=== PATIENT | male | born 1965 | race Caucasian/White ===

== ENCOUNTER 2019-11-29 17:12 | Inpatient (IN) | payer OTHER, SELFPAY ==
[2019-11-29] VITALS (17 sets, daily range): BP systolic 179–245; BP diastolic 112–148; PULSE 52–87; RESP 10–25; TEMP 36.1–36.7; O2SAT 94–100; BMI 35.9
--- NOTE | ~2019-11-29 | XR_ITS ---
EXAMINATION: XR chest 1V portable EXAM DATE: 11/29/2019 18:40 INDICATION: History of stroke. Hypertension, transient alteration of awareness. TECHNIQUE: Portable AP frontal chest x-ray was obtained. Comparison is made to prior examination from 09/03/2017. FINDINGS: Mild cardiomegaly. There is pulmonary vascular congestion. No confluent consolidation, pneu mothorax or pleural effusion suspected. There are no osseous abnormalities identified. IMPRESSION: Cardiomegaly, pulmonary vascular congestion. Reviewed, dictated and finalized at location A.
--- NOTE | ~2019-11-29 | CT_ITS ---
EXAMINATION: CT brain wo con EXAM DATE: 11/29/2019 17:38 INDICATION: Confusion, right-sided facial droop. TECHNIQUE: Spiral CT of the head was performed without contrast. Axial, coronal and sagittal images were reviewed. The dose-length product (DLP) for this examination was 605.33 mGy-cm. The exposure w as tailored according to patient size, and iterative reconstruction (ASIR) was used as additional dos e reduction technique. Comparison is made to prior examination from 09/12/2018. FINDINGS: There is no acute intraparenchymal hemorrhage. No evidence of intraparenchymal brain mass lesion. No evidence of acute infarction. Please note that initial head CT has limited sensitivity f or small or acute infarctions. Multiple old bilateral basal ganglia, bilateral caudate head, right t halamic lacunar infarctions. There is moderate periventricular and subcortical hypodensity, nonspeci fic but probably related to small vessel ischemic disease. There is mild prominence of the sulci an d ventricles related to cerebral atrophy. There is intracranial carotid arteriosclerosis. There ar e no extra-axial collections. There is no mass effect or midline shift. The orbits are unremarkable . Soft tissue is unremarkable. The visualized sinuses and mastoid air cells are well aerated. IMPRESSION: 1. No acute intracranial findings. 2. Chronic age related findings. 3. Multiple old bilateral lacunar infarctions. As per stroke protocol, I called these results, discussed with Liberty Ramos MD at 11/29/2019 17: 44 CDT. Reviewed, dictated and finalized at location A. IMPRESSION: 1. No acute intracranial findings. 2. Chronic age related findings. 3. Multiple old bilateral lacunar infarctions. As per stroke protocol, I called these results, discussed with Liberty Ramos MD at 11/29/2019 17:44 CDT.
--- NOTE | ~2019-11-29 | US_ITS ---
EXAMINATION: US carotid duplex BI EXAM DATE: 12/02/2019 17:11 INDICATION: History of stroke. TECHNIQUE: Grayscale, color and pulsed Doppler images of the cervical carotid arteries were obtained . The degree of vessel stenosis is placed in one of the following categories: normal, <50% stenosis, 50-69% stenosis, >=70% stenosis but less than near-occlusion, near-occlusion, or occlusion. Note that percent stenosis relative to normal distal artery lumen diameter is indirectly measured from velocit y measurements as described by Adithya, et al. Radiology 2003; 229:340-346. Comparison is made to prior examination from 09/13/2018. FINDINGS: RIGHT SIDE: Right common carotid artery peak systolic velocity (PSV in cm/s): 78 Right bulb/internal carotid artery peak systolic velocity (PSV in cm/s): 45 Right internal carotid artery end diastolic velocity (EDV in cm/s): 18 Right ICA/CCA peak systolic ratio: 0.7 Right external carotid artery peak systolic velocity (PSV in cm/s): 61 Right vertebral artery antegrade flow: yes There is no focal plaque identified. LEFT SIDE: Left common carotid artery peak systolic velocity (PSV in cm/s): 76 Left bulb/internal carotid artery peak systolic velocity (PSV in cm/s): 34 Left internal carotid artery end diastolic velocity (EDV in cm/s): 12 Left ICA/CCA peak systolic ratio: 0.4 Left external carotid artery peak systolic velocity (PSV in cm/s): Not visualized Left vertebral artery antegrade flow: Not visualized There is no focal plaque identified. IMPRESSION: 1. Normal right internal carotid artery. 2. Normal left internal carotid artery. Reviewed, dictated and finalized at location A.
--- NOTE | ~2019-11-29 | CT_ITS ---
EXAMINATION: CTA brain carotid EXAM DATE: 12/02/2019 23:59 INDICATION: Altered mental status. History of stroke. TECHNIQUE: Noncontrast head CT. Spiral CTA of the carotid arteries was performed with intravenous i njection 100 cc of Omnipaque 350. Axial, coronal, sagittal reformatted images reviewed. Additional r eformatted images created on dedicated 3-D workstation. NASCET comparable standard used to assess th e degree of arterial stenosis. Spiral CT angiogram cerebral arteries performed with the same intrave nous injection of contrast. Source images of the brain CTA transferred to dedicated workstation for 3 -D rotational image creation. Coronal, sagittal maximum intensity pixel images also reviewed. The d ose-length product (DLP) for this examination was 1862.05 mGy-cm. The exposure was tailored accordi ng to patient size, and iterative reconstruction (ASIR) was used as additional dose reduction techniq ue. Comparison is made to prior examination from 11/29/2019. FINDINGS: Minimal bilateral extracranial carotid arterial sclerosis with 0% stenosis bilaterally. The left vertebral artery is dominant. No carotid siphon stenosis. There is no carotid or vertebral bas ilar arterial dissection or fibromuscular dysplasia. There are no cerebral artery aneurysms. There is symmetric cerebral artery arborization. The sagittal, transverse and sigmoid sinuses enhance normall y, no venous sinus thrombosis. Internal cerebral veins also enhance normally. There are multiple old bilateral basal ganglia lacunar infarctions. There is no acute intraparenchyma l hemorrhage. No evidence of intraparenchymal brain mass lesion. No evidence of acute infarction. T here is moderate periventricular and subcortical hypodensity, nonspecific but probably related to sma ll vessel ischemic disease. There is mild prominence of the sulci and ventricles related to cerebra l atrophy. There is intracranial carotid arteriosclerosis. There is no mass effect or midline sonu ft. There is no obstructive hydrocephalus suspected. There are no extra-axial collections. There ar e no calvarial acute fractures. Evidence of small bilateral pleural effusions. IMPRESSION: 1. No cervical arterial dissection or cerebral artery aneurysm. No carotid stenosis. 2. Age-related intracranial findings. Chronic lacunar infarctions. 3. Evidence of small layering pleural effusions. Reviewed, dictated and finalized at location G. IMPRESSION: 1. No cervical arterial dissection or cerebral artery aneurysm. No carotid st enosis. 2. Age-related intracranial findings. Chronic lacunar infarctions. 3. Evidence of small layering pleural effusions.
[2019-11-29 17:28] LABS: Glucose Point of Care 182 (65-105)
--- NOTE | 2019-11-29 17:32 | ECG_ITS ---
Measurements Intervals [place] Rate: 66 P: 20 IL: 158 QRS: -52 QRSD: 118 T: 127 QT: 395 QTc: 415 Interpretive Statements SINUS RHYTHM LEFT ANTERIOR FASCICULAR BLOCK LEFT VENTRICULAR HYPERTROPHY AND ST-T CHANGE ST-T WAVE ABNORMALITY IN HIGH LATERAL LEADS- CONSIDER ISCHEMIA BASELINE ARTIFACT- II, III, AVR, AVF ABNORMAL ECG Electronically Signed On 11-29-2019 19:02:07 CDT by Kapil Ratliff D.O.
--- NOTE | 2019-11-29 17:58 | PC.NURSE ---
attempted straight cath x2 per terri bradley and terri garcia without urine return.
[2019-11-29 18:14] LABS: Basophils Percent Auto 0.5 % (0.2-1.2); Eosinophils Absolute Auto 0.1 K/mm3 (0-0.3); Eosinophils Percent Auto 1.2 % (0-4.4); Hematocrit 47.4 % (42.0-52.0); Hemoglobin 17.4 g/dL (14.0-18.0); Immature Granulocyte Absolute 0.04 K/mm3 (0.00-0.031); Immature Granulocyte Percent A 0.5 % (0-0.5); Lymphocytes Absolute Auto 0.86 K/mm3 (0.9-3.2); Lymphocytes Percent Auto 10.3 % (18.3-44.2); Mean Corpuscular HGB Conc 36.7 g/dl (32-36); Mean Corpuscular Hemoglobin 31.5 pg (26-34); Mean Corpuscular Volume 85.7 fl (80-100); Mean Platelet Volume 11.2 fl (7.4-10.4); Monocytes Absolute Auto 0.6 K/mm3 (0.1-0.6); Monocytes Percent Auto 6.9 % (2.6-8.5); Neutrophils Absolute Auto 6.7 K/mm3 (1.3-6.7); Neutrophils Percent Auto 80.6 % (45.5-73.1); Platelet Count Result 244 k/mm3 (150-375); Red Blood Count 5.53 M/mm3 (4.6-6.20); Red Cell Distribution Width 13.6 % (11.5-14.5); White Blood Count 8.3 K/mm3 (4.5-10.0)
[2019-11-29] MEDS: LABETALOL HCL INJ 100 MG/20 ML VIAL 20 MG IV PUSH (18:23)
[2019-11-29 18:30] LABS: Alanine Aminotransferase 15 U/L (4-50); Albumin Level 4.2 g/dL (3.5-5.1); Alkaline Phosphatase 95 U/L (38-126); Anion Gap 7 mmol/L (8-16); Aspartate Amino Transferase 26 U/L (17-59); Bilirubin,Total 1.2 mg/dL (0.2-1.3); Blood Urea Nitrogen 18 mg/dL (9-20); Calcium 9.1 mg/dL (8.4-10.2); Carbon Dioxide 37 mmol/L (22-30); Chloride 95 mmol/L (98-107); Estimated CRCL calculation 51 ml/min; Estimated Glomerular Filt Rate 42; Glucose 155 mg/dL (75-110); Potassium 2.5 mmol/L (3.4-5.0); Sodium 139 mmol/L (137-145)
--- NOTE | 2019-11-29 18:38 | ED.GENADULT ---
HPI - General Adult General Chief complaint: Altered Mental Status Stated complaint: Has DM, not eating Time Seen by Provider: 11/29/19 17:40 Source: patient and other (friend) History of Present Illness HPI narrative: Patient is a 54 y/o male brought in by a friend for concern about altered mental status and general welfare. His friend states that patient is homeless and lives at the basement of a worship. His friend states that patient has a car, but the patient reportedly took it to a shop for repair and cannot recall which shop right now. His friend also states that patient has not been eating much for last 3 days. Patient insists that he feels fine. He admits that he has not been eating, but states that he has poor appetite. He denies any abdominal pain, vomiting or diarrhea. Related Data Home Medications Medication Instructions Recorded Confirmed Bp Med 02/13/19 Diabetes Med 02/13/19 amlodipine 5 mg tablet 5 mg PO DAILY 02/23/19 clonidine HCl 0.1 mg tablet 0.1 mg PO TID tablet 02/23/19 glipizide 5 mg tablet 5 mg PO DAILY 02/23/19 hydrochlorothiazide 12.5 mg tablet 12.5 mg PO DAILY 02/23/19 insulin glargine 100 unit/mL (3 10 unit SUB-Q QPM ml 02/23/19 mL) subcutaneous pen lisinopril 40 mg tablet 40 mg PO DAILY 02/23/19 metformin 500 mg tablet,extended 500 mg PO DAILY 02/23/19 release 24 hr pen needle, diabetic 32 gauge x #10 each 02/23/19 simvastatin 20 mg tablet 20 mg PO DAILY 02/23/19 Allergies Allergy/AdvReac Type Severity Reaction Status Date / Time No Known Allergies Allergy Verified 11/29/19 17:28 Review of Systems Constitutional: Constitutional: Denies chills, Denies fever(s), Denies headache(s) and Denies weakness Eyes: Eyes: Denies blurry vision ENT: Denies headache(s) and Denies neck pain Cardiovascular: Cardiovascular: Denies chest pain and Denies dyspnea Respiratory: Respiratory: Denies cough and Denies dyspnea Gastrointestinal: Gastrointestinal: Reports as per HPI, Denies abdominal pain, Denies diarrhea, Denies nausea and Denies vomiting Comments: decreased appetite Genitourinary: Genitourinary: Denies hematuria and Denies dysuria Musculoskeletal: Musculoskeletal: Denies back pain and Denies neck pain Neurologic: Denies headache(s) and Denies weakness [facility] Past Medical History Medical History Appendicitis CVA (cerebral vascular accident) DM II (diabetes mellitus, type II), controlled HLD (hyperlipidemia) HTN (hypertension) Surgical History Surgical History History of appendectomy Family History Family History Father Hypertension, Onset Age: 79 Family history of arthritis, Onset Age: 79 Mother Hypertension Asthma Social History Social History Smoking status: Never smoker Alcohol intake: never Substance use: never Gender identity (if verbalized by the patient): Male Exam Const: General: no acute distress and ill appearing Orientation/consciousness: oriented to person, oriented to place and confusion HENMT: Head: normocephalic Ears: external ears normal General nose exam: Normal external nose present Eyes: General: appearance normal, both eyes and all related structures Conjunctivae: conjunctivae normal Neck: Neck: normal visual inspection and full ROM Chest: Chest palpation & inspection: normal inspection of the chest and no tenderness Resp: Effort & Inspection: normal respiratory effort Auscultation: clear to auscultation bilaterally Cardio: Rate: regular rate Rhythm: regular rhythm GI: GI Palp: No abdominal tenderness and Yes Soft to palpation Skin: General skin exam: normal color and turgor normal Neuro: General: oriented to person, oriented to place and confusion Cognition (Neuro):
[2019-11-29] MEDS: POTASSIUM CHLORIDE 20 MEQ TABLET 40 MEQ PO (18:58)
--- NOTE | 2019-11-29 18:59 | PC.NURSE ---
still no urine from pt despite x2 straight caths. pt attempting to use urinal.
--- NOTE | 2019-11-29 19:14 | PC.NURSE ---
REPORT TO MARCO ANTONIO COYNE AT THIS TIME, HE HAS ASSUMED PT CARE.
--- NOTE | 2019-11-29 19:19 | PC.NURSE ---
Called lab to add on CK
[2019-11-29] MEDS: amLODIPine BESYLATE 5 MG TABLET 10 MG PO (19:29)
[2019-11-29] MEDS: SODIUM CHLORIDE 0.9% IV 1,000 ML 999 ML IV CONT (19:30)
[2019-11-29 19:47] LABS: Creatine Kinase 220 U/L (55-170)
--- NOTE | 2019-11-29 19:50 | ECG_ITS ---
Measurements Intervals [place] Rate: 51 P: 18 NC: 162 QRS: -50 QRSD: 113 T: 139 QT: 429 QTc: 398 Interpretive Statements SINUS BRADYCARDIA LEFT ANTERIOR FASCICULAR BLOCK LEFT VENTRICULAR HYPERTROPHY AND ST-T CHANGE BASELINE ARTIFACT- I, III, AVR, AVL, AVF ABNORMAL ECG Electronically Signed On 12-01-2019 15:59:04 CDT by Kapil Ratliff D.O.
--- NOTE | 2019-11-29 20:21 | PM.IMHP ---
H&P: HPI History of Present Illness Date/Time: 11/29/19 20:21 Chief complaint: hypokalemia, hypertensive urgency Narrative: This is a 54 year old diabetic homeless male who was brought in to the hospital by his friend who was concerned that the patient was confused. Apparently the patient lives in the basement of a sikh and has not eaten for the past 3 days. The patient himself is pleasantly confused but can answer questions appropriately. He believes that its 2012 and that the current president is [place]. The patient denies any alcohol use or history of COPD. He also denies any fevers, cough, shortness of breath, chest pain, nausea, vomiting, abdominal pain, dysuria, hematuria, diarrhea or rectal bleeding. He also denies any head trauma, seizure like activity, or focal neurological symptoms. He states he has been taking his medications as directed. The patient was evaluated in the ER tonight and found to have uncontrolled HTN, hypokalemia, and acute renal failure. CT brain was unremarkable for acute pathology. The patient was treated with 1 liter NS IV bolus, oral potassium and labetalol IV. We have been asked to admit the patient to the hospital for further care. No other complaints. Review of Systems Review of Systems: All systems reviewed & are unremarkable except as noted in HPI and below PMFSH Past Medical History Medical History Appendicitis CVA (cerebral vascular accident) DM II (diabetes mellitus, type II), controlled HLD (hyperlipidemia) HTN (hypertension) Surgical History Surgical History History of appendectomy Family History Family History (Updated 11/29/19 @ 22:47 by Kayla Schmidt RN) Father Family history of arthritis, Onset Age: 79 Hypertension, Onset Age: 79 Acute myocardial infarction Mother Hypertension Asthma Diabetes mellitus Social History Social History Smoking status: Never smoker Second hand tobacco smoke exposure: Yes Alcohol intake: never Substance use: never Gender identity (if verbalized by the patient): Male Spiritual care concerns: No Meds Home Medications and Allergies Home Medications Medication Instructions Recorded Confirmed Type No Home Medications 11/30/19 11/30/19 History Allergies Allergy/AdvReac Type Severity Reaction Status Date / Time No Known Allergies Allergy Verified 11/29/19 17:28 Vital Signs Vital Signs - 24 hr 11/29/19 17:22 11/29/19 17:41 11/29/19 17:42 Temperature 36.7 C Pulse Rate 87 72 65 Respiratory Rate 20 24 H 23 H Blood Pressure 221/138 H 203/148 H Pulse Oximetry 97 97 11/29/19 17:45 11/29/19 17:46 11/29/19 17:56 Temperature Pulse Rate 67 67 65 Respiratory Rate 15 25 H 19 Blood Pressure 245/124 H 245/124 H Pulse Oximetry 96 97 98 11/29/19 18:00 11/29/19 18:01 11/29/19 18:15 Temperature Pulse Rate 64 65 61 Respiratory Rate 10 L 21 H 17 Blood Pressure 213/122 H Pulse Oximetry 96 100 94 11/29/19 18:16 11/29/19 18:30 11/29/19 18:46 Temperature Pulse Rate 62 53 L Respiratory Rate 19 21 H 18 Blood Pressure 214/122 H 193/123 H Pulse Oximetry 96 11/29/19 18:50 11/29/19 19:35 Temperature Pulse Rate 59 L 52 L Respiratory Rate 20 14 Blood Pressure 198/113 H Pulse Oximetry 98 Exam Const: General: cooperative, alert, awake and other (Confused+ ) Nutritional Appearance: well nourished Orientation/consciousness: oriented to person and confusion HENMT: Head: normal to inspection General nose exam: Normal external nose present Face and sinus: normal facial exam Mouth: Yes Normal oral and palatal mucosa present and Yes oropharynx normal Eyes: Pupils: Equal, round and reactive pupils present EOM: EOMs intact bilaterally Neck: Neck: supple and no JVD Thyroid: th
[2019-11-29 20:22] LABS: Alveolar/Arterial O2 Gradient 14.3 mmHg; Base Excess ABG 3.5 mEq/l (+/-2.0); Fractional Inspired Oxygen 21 %; HCO3 ABG 27.6 mEq/l (22.0-26.0); Oxyhemoglobin 95.7 % THb (90.0-100.0); PCO2 ABG 40.3 mmHg (35.0-45.0); PO2 ABG 87.2 mmHg (80.0-100.0); PO2 FiO2 Ratio Arterial Blood 4.15 %; Total Hemoglobin 16.3 g/dL (12.0-18.0); pH ABG 7.454 (7.350-7.450)
[2019-11-29 20:23] LABS: Device ROOM AIR; Modified Allen's Test Pass; Site Drawn RIGHT RADIAL
[2019-11-29] MEDS: lisinopriL 20 MG TABLET 40 MG PO (20:41)
[2019-11-29] MEDS: hydrALAZINE HCL 20 MG/ML VIAL IV PUSH (21:43)
[2019-11-29] MEDS: SODIUM CHLORIDE 0.9% IV 1,000 ML 100 ML IV CONT (21:43)
[2019-11-29] MEDS: TOLNAFTATE 1% POWDER 45 GM BTL 1 APPLIC TOPICAL (21:44)
--- NOTE | 2019-11-29 21:59 | ADMGEN ---
This patient, Fletcher Ward, was admitted to IMU Room 200-01 @ 2140 from the ED department. Patient/family oriented to hospital policies and general routines including ID bracelet, bed and alarms, visiting hours, pain management, procedures, bathroom and other care routines, personal items, smoking policy, room service/diet, and visiting hours. Valuables list has been completed. Information on how to activate the Rapid Response Team has been discussed. Patient/Family are encouraged to report perceived risks to care and to ask questions if they do not understand what they are told or what they should do.
[2019-11-29 22:19] LABS: Glucose Point of Care 97 (65-105)
[2019-11-29 22:27] LABS: Add Urine Microscopic? YES; Appearance Urine Clear (Clear); Bilirubin Urine Negative (Negative); Blood Urine 3+ (Negative); Color Urine Yellow (Yellow); Glucose Urine UA Negative (Negative); Ketones Urine Negative (Negative); Leukocyte Esterase Ur Trace LEU/UL (Negative); Mucus Urine Rare /lpf; Nitrate Urine Negative (Negative); Protein Urine 1+ mg/dL (Negative); RBC Urine 21-50 /hpf (0-2); Specific Grav Ur 1.013 (1.001-1.035); Squamous Epithelial Cell Urine Rare /hpf (Few); WBC Urine 21-30 /hpf
[2019-11-29 22:36] LABS: Amphetamine Screen Urine Negative (Negative); Barbiturate Screen Urine Negative (Negative); Benzodiazepines Screen Urine Negative (Negative); Cannabinoid Screen Urine Negative (Negative); Cocaine Screen Urine Negative (Negative); Methadone Screen Urine Negative (Negative); Opiate Screen Urine Negative (Negative); Phencyclidine Screen Urine Negative (Negative)
[2019-11-29 23:29] LABS: Anion Gap 7 mmol/L (8-16); Blood Urea Nitrogen 15 mg/dL (9-20); Calcium 8.8 mg/dL (8.4-10.2); Carbon Dioxide 29 mmol/L (22-30); Chloride 103 mmol/L (98-107); Estimated CRCL calculation 60 ml/min; Estimated Glomerular Filt Rate 53; Glucose 98 mg/dL (75-110); Potassium 2.7 mmol/L (3.4-5.0); Sodium 139 mmol/L (137-145)
[2019-11-30] VITALS (11 sets, daily range): BP systolic 122–186; BP diastolic 85–127; PULSE 53–111; RESP 16–22; TEMP 36.2–36.9; O2SAT 98; BMI 36.4
--- NOTE | 2019-11-30 | ECHO_ITS ---
Patient Info Name: Fletcher Ward Age: 54 years : 1965 Gender: Male Ht: 66 in Wt: 226 lbs BSA: 2.23 m2 HR: 90 bpm BP: 186 / 109 mmHg Heart Rhythm: Sinus Rhythm Technical Quality: Good Exam Date: 11/30/2019 1:34 PM Exam Location: [facility] Patient Status: Inpatient Admit Date: 11/30/2019 Staff Ordering Physician: Keith Mahoney MD [employer] Principal: Jarad Bolanos ENDER Attending Provider: Obinna Zuniga MD Referring Physician: Denzel SHELLEY; Exam Type: CA echo dop color flow w con Study Info Indications I11.9 - Hypertensive heart disease without heart failure Complete two-dimensional, color flow and Doppler transthoracic echocardiogram is performed with contrast to opacify the left ventricle and to improve the deliniation of the left ventricle endocardial borders. Contrast/Agitated Saline Contrast/Ag. Saline: Definity Amount: 2.00 ml Administered By: Juno Ivy RN Existing IV Access: Yes History/Risk Factors HTN urgency, Dm2, CVA, cardiomegaly. Summary 1. Left ventricular chamber dimension is mildly enlarged. 2. Left ventricular systolic function is normal, estimated at 55-60%. 3. There is severely increased left ventricular wall thickness. 4. Left ventricular septal wall motion is normal. 5. The left ventricular diastolic function is grade I diastolic dysfunction. 6. Left atrial chamber dimension is mildly enlarged. 7. There is mild aortic valve regurgitation. Left Ventricle Left ventricular chamber dimension is mildly enlarged. Left ventricular systolic function is normal, estimated at 55-60%. There is severely increased left ventricular wall thickness. Left ventricular septal wall motion is normal. The left ventricular diastolic function is grade I diastolic dysfunction. Right Ventricle Right ventricular chamber dimension is normal. Right ventricular systolic function is normal. Left Atria Left atrial chamber dimension is mildly enlarged. Right Atria Right atrial chamber dimension is normal. Atrial Septum Intact interatrial septum visualized by color flow imaging. Aortic Valve The aortic valve is probable trileaflet. There is mild aortic valve sclerosis. There is no aortic valve stenosis. There is mild aortic valve regurgitation. Pulmonic Valve The pulmonic valve is normal. There is no pulmonic valve stenosis. There is trace pulmonic regurgitation. Mitral Valve The mitral valve has normal leaflets. There is no mitral valve stenosis. There is trace mitral valve regurgitation. Tricuspid Valve The tricuspid valve leaflets are normal. There is no significant tricuspid valve stenosis. There is trace tricuspid valve regurgitation. Pericardium/Pleural The pericardium appears normal. There is no pericardial effusion. Inferior Vena Cava Normal inferior vena cava with >50% collapse upon inspiration consistent with normal right atrial pressure, 5 mmHg. Aorta The aortic root size at the sinus of Valsalva is normal. The prox ascending aorta size is normal. Left Ventricular Outflow Tract Name Value Normal LVOT 2D LVOT Diameter 2.12 cm
[2019-11-30 05:08] LABS: Basophils Absolute Auto 0.1 K/mm3 (0.0-0.1); Basophils Percent Auto 0.6 % (0.2-1.2); Eosinophils Absolute Auto 0.2 K/mm3 (0-0.3); Eosinophils Percent Auto 1.8 % (0-4.4); Hematocrit 45.3 % (42.0-52.0); Hemoglobin 16.4 g/dL (14.0-18.0); Immature Granulocyte Absolute 0.04 K/mm3 (0.00-0.031); Immature Granulocyte Percent A 0.5 % (0-0.5); Lymphocytes Absolute Auto 0.98 K/mm3 (0.9-3.2); Lymphocytes Percent Auto 11.5 % (18.3-44.2); Mean Corpuscular HGB Conc 36.2 g/dl (32-36); Mean Corpuscular Hemoglobin 31.2 pg (26-34); Mean Corpuscular Volume 86.3 fl (80-100); Mean Platelet Volume 11.5 fl (7.4-10.4); Monocytes Absolute Auto 0.7 K/mm3 (0.1-0.6); Neutrophils Absolute Auto 6.6 K/mm3 (1.3-6.7); Neutrophils Percent Auto 77.6 % (45.5-73.1); Platelet Count Result 188 k/mm3 (150-375); Red Blood Count 5.25 M/mm3 (4.6-6.20); Red Cell Distribution Width 13.9 % (11.5-14.5); White Blood Count 8.5 K/mm3 (4.5-10.0)
[2019-11-30 07:42] LABS: Glucose Point of Care 134 (65-105)
[2019-11-30 08:23] LABS: Anion Gap 7 mmol/L (8-16); Blood Urea Nitrogen 13 mg/dL (9-20); Calcium 8.5 mg/dL (8.4-10.2); Carbon Dioxide 30 mmol/L (22-30); Chloride 101 mmol/L (98-107); Estimated CRCL calculation 64 ml/min; Estimated Glomerular Filt Rate 57; Glucose 135 mg/dL (75-110); Magnesium 1.9 mg/dL (1.6-2.3); Potassium 3.2 mmol/L (3.4-5.0); Sodium 138 mmol/L (137-145)
--- NOTE | 2019-11-30 08:36 | PM.IMPN ---
Progress Note: A&P Assessment and Plan (1) Hypokalemia: Code(s): E87.6 - Hypokalemia Status: Acute Assessment and Plan: Replace as needed, suspect poor oral intake as patient is homeless, no meals in x 3 days. Daily BMP (2) Hypertensive urgency: Code(s): I16.0 - Hypertensive urgency Status: Acute Assessment and Plan: Will re start home meds Patient has not taken meds in over a year Hold Lisinopril and HCTZ due to hypokalemia and elevated Cr Will re start in the outpatient setting. (3) Altered mental status: Qualifiers: Altered mental status type: unspecified Qualified Code(s): R41.82 - Altered mental status, unspecified Code(s): R41.82 - Altered mental status, unspecified Status: Acute Assessment and Plan: Likely secondary to UTI CT head unremarkable however multiple lacunar infarctions chronic Continue to monitor (4) Intertrigo: Code(s): L30.4 - Erythema intertrigo Status: Acute Assessment and Plan: Continue antifungal. 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 Qualified Code(s): E11.9 - Type 2 diabetes mellitus without complications Code(s): E11.9 - Type 2 diabetes mellitus without complications Status: Chronic Assessment and Plan: Holding Metformin and glipizide ISS as needed Accuchecks ACHS (7) Uncontrolled hypertension: Code(s): I10 - Essential (primary) hypertension Status: Acute Assessment and Plan: Re started home meds (8) Hypokalemia: Code(s): E87.6 - Hypokalemia Status: Acute Assessment and Plan: Replace as needed Magnesium WNL (9) Acute renal failure: Qualifiers: Acute renal failure type: unspecified Qualified Code(s): N17.9 - Acute kidney failure, unspecified Code(s): N17.9 - Acute kidney failure, unspecified Status: Acute Assessment and Plan: IV fluids gently. (10) Acute encephalopathy: Code(s): G93.40 - Encephalopathy, unspecified Status: Acute Assessment and Plan: Likely secondary to hypertensive encephalopathy and UTI Continue to monitor Supportive care CT head reviewed. (11) UTI (urinary tract infection): Code(s): N39.0 - Urinary tract infection, site not specified Status: Acute Assessment and Plan: Started Rocephin. Subjective Date/time seen: 11/30/19 08:36 I'm here because of confusion Review of Systems Review of Systems: Narrative: Patient was brought to ED after his friend found him to be confused, patient can not give much history he states that he is here because of confusion Exam Const: General: no acute distress, alert, awake, Physically active and confusion Nutritional Appearance: average body habitus Orientation/consciousness: oriented to person, oriented to place and confusion Limitations: altered mental status Other: Patient with disorientation, confuion. HENMT: Head: normal to inspection, normocephalic and atraumatic Ears: hearing grossly normal bilaterally General nose exam: Normal external nose present Face and sinus: normal facial exam Eyes: General: appearance normal, both eyes and all related structures Alignment and Position: alignment normal Pupils: Equal, round and reactive pupils present EOM: EOMs intact bilaterally Neck: Neck: normal visual inspection, full ROM, no lymphadenopathy and no JVD Thyroid: thyroid normal Lymphatic: no lymphadenopathy noted Resp: Effort & Inspection: normal respiratory effort Auscultation: clear to auscultation bilaterally Cardio: Jugular venous distension: no JVD Rate: regular rate Rhythm: regular rhythm Hear
[2019-11-30] MEDS: TOLNAFTATE 1% POWDER 45 GM BTL 1 APPLIC TOPICAL ×2 (09:08→19:58)
[2019-11-30] MEDS: hydrALAZINE HCL 20 MG/ML VIAL 10 MG IV PUSH ×2 (09:13→21:40)
[2019-11-30 09:29] LABS: Folic Acid 6.3 ng/mL (2.76->20)
[2019-11-30 12:26] LABS: Glucose Point of Care 179 (65-105)
[2019-11-30 12:38] LABS: Ammonia 17 umol/L (9-30)
[2019-11-30] MEDS: PERFLUTREN LIPID MICROSPHERES 1.5 ML VIAL DILUTED TO 10 ML TOTAL VOLUME IV PUSH (13:59)
[2019-11-30] MEDS: SODIUM CHLORIDE 0.9% IV 1,000 ML 100 ML IV CONT (14:55)
--- NOTE | 2019-11-30 16:55 | PC.NURSE ---
This patient, Fletcher Ward, was transferred to Replaced by [facility] on 11/30/19 at 1650. Personal belongings sent with patient. Belongings list checked and signed with receiving. Report given to MARCO ANTONIO Morales. Appropriate documentation sent with patient.
--- NOTE | 2019-11-30 17:05 | PC.NURSE ---
This patient, Fletcher Ward, was received from IMU on 11/30/19 at 1706. Personal belongings list checked and signed. Patient/family oriented to unit policies and routines
[2019-11-30 17:36] LABS: Glucose Point of Care 147 (65-105)
[2019-11-30] MEDS: cloNIDine HCL 0.1 MG TABLET PO (19:01)
[2019-12-01] VITALS (7 sets, daily range): BP systolic 132–155; BP diastolic 69–98; PULSE 56–84; RESP 16–20; TEMP 36–36.9; O2SAT 97–99
[2019-12-01 00:34] LABS: Glucose Point of Care 134 (65-105)
--- NOTE | 2019-12-01 04:30 | PC.NURSE ---
Orders to straight cath prn when pt is unable to void. Pt has not had much output this shift. I used the bladder scanner and got 150 mL as the largest amount shown. Will continue to monitor and scan as needed. Will not straight cath at this time.
[2019-12-01] MEDS: SODIUM CHLORIDE 0.9% IV 1,000 ML 100 ML IV CONT ×2 (05:11→16:46)
[2019-12-01 07:28] LABS: Glucose Point of Care 106 (65-105)
[2019-12-01 08:22] LABS: Basophils Percent Auto 0.3 % (0.2-1.2); Eosinophils Absolute Auto 0.2 K/mm3 (0-0.3); Eosinophils Percent Auto 2.2 % (0-4.4); Hematocrit 42.2 % (42.0-52.0); Immature Granulocyte Absolute 0.04 K/mm3 (0.00-0.031); Immature Granulocyte Percent A 0.6 % (0-0.5); Lymphocytes Absolute Auto 1.11 K/mm3 (0.9-3.2); Mean Corpuscular HGB Conc 35.5 g/dl (32-36); Mean Corpuscular Hemoglobin 31.4 pg (26-34); Mean Corpuscular Volume 88.3 fl (80-100); Mean Platelet Volume 10.9 fl (7.4-10.4); Monocytes Absolute Auto 0.7 K/mm3 (0.1-0.6); Monocytes Percent Auto 9.5 % (2.6-8.5); Neutrophils Percent Auto 71.4 % (45.5-73.1); Platelet Count Result 175 k/mm3 (150-375); Red Blood Count 4.78 M/mm3 (4.6-6.20); Red Cell Distribution Width 14.6 % (11.5-14.5); White Blood Count 6.9 K/mm3 (4.5-10.0)
[2019-12-01] MEDS: cloNIDine HCL 0.1 MG TABLET PO ×3 (08:24→16:45)
[2019-12-01] MEDS: amLODIPine BESYLATE 5 MG TABLET PO (08:24)
[2019-12-01] MEDS: TOLNAFTATE 1% POWDER 45 GM BTL 1 APPLIC TOPICAL ×2 (08:25→20:37)
[2019-12-01 08:34] LABS: Anion Gap 6 mmol/L (8-16); Blood Urea Nitrogen 17 mg/dL (9-20); Calcium 8.3 mg/dL (8.4-10.2); Carbon Dioxide 29 mmol/L (22-30); Chloride 106 mmol/L (98-107); Estimated CRCL calculation 57 ml/min; Estimated Glomerular Filt Rate 49; Glucose 103 mg/dL (75-110); Sodium 141 mmol/L (137-145)
--- NOTE | 2019-12-01 11:12 | PM.IMPN ---
Progress Note: A&P Assessment and Plan (1) UTI (urinary tract infection): Code(s): N39.0 - Urinary tract infection, site not specified Status: Acute Assessment and Plan: Started on Rocephin Continue supportive care. (2) Hypokalemia: Code(s): E87.6 - Hypokalemia Status: Acute Assessment and Plan: Replace as needed. (3) Hypertensive urgency: Code(s): I16.0 - Hypertensive urgency Status: Acute Assessment and Plan: Resolved Re started on home meds (4) Altered mental status: Qualifiers: Altered mental status type: unspecified Qualified Code(s): R41.82 - Altered mental status, unspecified Code(s): R41.82 - Altered mental status, unspecified Status: Acute Assessment and Plan: Waxes and wanes Neurology consulted Appreciate Neurology note (5) Intertrigo: Code(s): L30.4 - Erythema intertrigo Status: Acute Assessment and Plan: Continue antifungal. (6) Homelessness: Code(s): Z59.0 - Homelessness Status: Chronic Assessment and Plan: room worker consulted. (7) DM II (diabetes mellitus, type II), controlled: Qualifiers: Diabetes mellitus jail insulin use: without director long term care use Diabetes mellitus complication status: without complication Qualified Code(s): E11.9 - Type 2 diabetes mellitus without complications Code(s): E11.9 - Type 2 diabetes mellitus without complications Status: Chronic Assessment and Plan: Continue to monitor. ISS as needed Accuchecks ADA 1800 calorie diet (8) Acute renal failure: Qualifiers: Acute renal failure type: unspecified Qualified Code(s): N17.9 - Acute kidney failure, unspecified Code(s): N17.9 - Acute kidney failure, unspecified Status: Acute Assessment and Plan: Improved Bu/Cr Daily BMP Likely a combination of pre renal azotemia and hypertensive nephropathy. (9) Acute encephalopathy: Code(s): G93.40 - Encephalopathy, unspecified Status: Acute Assessment and Plan: Waxes and wanes. Subjective Date/time seen: 12/01/19 11:12 Review of Systems Review of Systems: Narrative: Unable to get a history as patient states that he knows why he is here but then repeats my questions back. Was sleepy as well. Exam Narrative: Exam Narrative: Lying in bed comfortable. Const: General: comfortable and other (sleepy) Nutritional Appearance: average body habitus Orientation/consciousness: oriented to person HENMT: Head: normocephalic and atraumatic Ears: hearing grossly normal bilaterally General nose exam: Normal external nose present Face and sinus: normal facial exam Eyes: General: appearance normal, both eyes and all related structures Pupils: Equal, round and reactive pupils present EOM: EOMs intact bilaterally Neck: Neck: normal visual inspection, full ROM, no lymphadenopathy, supple and no JVD Resp: Auscultation: clear to auscultation bilaterally Cardio: Jugular venous distension: no JVD Rate: regular rate Rhythm: regular rhythm Heart sounds: S1 normal heart sound present and S2 normal heart sound present GI: Inspection: Pannus present GI Palp: Yes Soft to palpation and Yes No hepatosplenomegaly present Auscultation: normal bowel sounds Skin: General skin exam: normal color Lesions: no lesions Rashes: no rashes Wounds: no wounds Nails: yellow and thickened Neuro: General: oriented to person and CN's II-XI intact bilaterally Cranial nerves: Yes Equal, round and reactive pupils present Motor exam (neuro): 5/5 motor strength present throughout Psych: Appearance: grossly normal Mental Status: mental status grossly normal Speech and movement: Echolalia present (Psych) Affect: normal affect Attitude: cooperative Thought process: Impoverished thought process present Objective Data Vital Signs Vital Signs: Vital Signs - 24 hr 11/30/19 12:00 11/30/19 14:0
[2019-12-01 11:31] LABS: Glucose Point of Care 99 (65-105)
--- NOTE | 2019-12-01 14:27 | WPDNEURCNPN ---
Assessment and Plan Assessment and plan (1) Hypokalemia: Code(s): E87.6 - Hypokalemia Status: Acute (2) Hypertensive urgency: Code(s): I16.0 - Hypertensive urgency Status: Acute (3) Altered mental status: Qualifiers: Altered mental status type: unspecified Qualified Code(s): R41.82 - Altered mental status, unspecified Code(s): R41.82 - Altered mental status, unspecified Status: Acute (4) HLD (hyperlipidemia): Qualifiers: Hyperlipidemia type: unspecified Qualified Code(s): E78.5 - Hyperlipidemia, unspecified Code(s): E78.5 - Hyperlipidemia, unspecified Status: Chronic (5) Homelessness: Code(s): Z59.0 - Homelessness Status: Chronic (6) DM II (diabetes mellitus, type II), controlled: Qualifiers: Diabetes mellitus senior living insulin use: without exterminator use Diabetes mellitus complication status: without complication Qualified Code(s): E11.9 - Type 2 diabetes mellitus without complications Code(s): E11.9 - Type 2 diabetes mellitus without complications Status: Chronic (7) Acute renal failure: Qualifiers: Acute renal failure type: unspecified Qualified Code(s): N17.9 - Acute kidney failure, unspecified Code(s): N17.9 - Acute kidney failure, unspecified Status: Acute (8) Acute encephalopathy: Code(s): G93.40 - Encephalopathy, unspecified Status: Acute Additional Plan complete the full workup for stroke and if there is any evidence of stroke on the MRI than the will be need for at least anti-platelet therapy rest of the management as per the hospital Consult date: 12/01/19 Time Seen: 13:45 HPI: Fletcher Ward is a 54 year old male he is a right-handed and feeling fine denies any headache nausea vomiting chest pain shortness of breath fever chills sore throat the patient was admitted because of change in the mental status suspected are related to hypertensive emergency here possibility of urinary tract infections however the microbiology the urine is not revealing much so far the workup been negative the MRI of the brain is pending I am not entirely clear about his history as he is unable to elaborate why did he come to the hospital I understand he is homeless and does not have much of a support He denies any headache nausea vomiting chest pain shortness of breath fever chills sore throat Review of Systems Review of Systems: All systems reviewed & are unremarkable except as noted in HPI and below PMFSH Past Medical History Medical History Appendicitis CVA (cerebral vascular accident) DM II (diabetes mellitus, type II), controlled HLD (hyperlipidemia) HTN (hypertension) Surgical History Surgical History History of appendectomy Family History Family History Father Family history of arthritis, Onset Age: 79 Hypertension, Onset Age: 79 Acute myocardial infarction Mother Hypertension Asthma Diabetes mellitus Social History Social History Smoking status: Never smoker Second hand tobacco smoke exposure: Yes Alcohol intake: never Substance use: never Gender identity (if verbalized by the patient): Male Spiritual care concerns: No Meds Home Medications and Allergies Home Medications Medication Instructions Recorded Confirmed Type amlodipine 5 mg PO DAILY 11/30/19 11/30/19 History clonidine HCl 0.1 mg PO TID 11/30/19 11/30/19 History glipizide 5 mg PO DAILY 11/30/19 11/30/19 History hydrochlorothiazide 12.5 mg PO DAILY 11/30/19 11/30/19 History lisinopril 40 mg PO DAILY 11/30/19 11/30/19 History metformin 500 mg PO DAILY 11/30/19 11/30/19 History simvastatin 20 mg PO DAILY 11/30/19 11/30/19 History Allergies Allerg
--- NOTE | 2019-12-01 14:31 | WPDNEUROPN ---
Objective Data Vital Signs Vital Signs: Vital Signs - 24 hr 11/30/19 16:00 11/30/19 17:06 11/30/19 20:00 Temperature 36.5 C 36.6 C 36.9 C Pulse Rate 73 84 63 Respiratory Rate 16 18 18 Blood Pressure 158/96 H 158/106 H 169/127 H Pulse Oximetry 98 98 98 12/01/19 00:00 12/01/19 04:00 12/01/19 07:59 Temperature 36.9 C 36.3 C L 36.2 C L Pulse Rate 61 79 56 L Respiratory Rate 16 20 16 Blood Pressure 153/84 H 147/79 H 132/69 Pulse Oximetry 97 98 99 12/01/19 08:00 12/01/19 12:00 Temperature 36.0 C L Pulse Rate 56 L 68 Respiratory Rate 18 Blood Pressure 155/91 H Pulse Oximetry 99 Intake/Output Intake/Output: Intake & Output 11/28/19 11/29/19 11/30/19 12/01/19 23:59 23:59 23:59 23:59 Intake Total 2650 1240 Output Total 600 20 Balance 2050 1220 Meds/Results Medications: Active Medications Generic Name Dose Route Start Last Admin Trade Name Freq PRN Reason Stop Dose Admin Acetaminophen 650 mg 11/29/19 20:46 Acetaminophen 325 Mg Tablet PO Q4H PRN Mild Pain (1-3) or Fever Amlodipine Besylate 5 mg 12/01/19 09:00 12/01/19 08:24 Amlodipine Besylate 5 Mg Tablet PO 5 mg DAILY ALEJANDRA Administration Clonidine HCl 0.1 mg 11/30/19 17:00 12/01/19 14:08 Clonidine Hcl 0.1 Mg Tablet PO 0.1 mg TID ALEJANDRA Administration Dextrose 12.5 gm 11/29/19 20:43 Dextrose 50% 25 Gm/50 Ml Syringe IV PUSH PRN PRN Hypoglycemia Protocol Glucagon 1 mg 11/29/19 20:43 Glucagon For Inj 1 Mg Vial IM PRN PRN Hypoglycemia Protocol Glucose 15 gm 11/29/19 20:43 Glucose Oral Gel 15 Gm Of Glucse In 37.5 Gm Tube PO PRN PRN Hypoglycemia Protocol Dextrose 1,000 mls @ 100 mls/hr 11/29/19 20:43 Dextrose 5% 1,000 Ml IVPB PRN PRN Hypoglycemia Protocol Sodium Chloride 1,000 mls @ 100 mls/hr 11/29/19 20:50 12/01/19 05:11 Normal Saline Iv IV CONT 100 mls/hr .Q10H ALEJANDRA Administration Ceftriaxone Sodium/Dextrose 1 gm in 50 mls @ 100 mls/hr 11/30/19 18:00 11/30/19 20:28 Rocephin 1 Gm/D5w 50 Ml IVPB Infused Q24H ALEJANDRA Infusion Insulin Aspart 3 - 6 units 11/30/19 08:00 12/01/19 11:35 Insulin Aspart (*Bkc) 100 Units/Ml SUB-Q Not Given TIDWM ALEJANDRA Protocol Tolnaftate 1 applic 11/29/19 21:00 12/01/19 08:25 Tolnaftate 1% Powder 45 Gm Btl TOPICAL 1 applic Q12HR ALEJANDRA Administration Radiology Results: ITS Impressions Head CT 11/29/19 17:43 IMPRESSION: 1. No acute intracranial findings. 2. Chronic age related findings. 3. Multiple old bilateral lacunar infarctions. As per stroke protocol, I called these results, discussed with Liberty Ramos MD at 11/29/2019 17:44 CDT. Chest X-Ray 11/29/19 18:42 IMPRESSION: Cardiomegaly, pulmonary vascular congestion. Labs Labs: Laboratory Results - last 24 hr 11/30/19 11/30/19 12/01/19 16:06 21:39 07:25 WBC RBC Hgb Hct MCV MCH MCHC RDW Plt Count MPV Immature Gran % (Auto) Neut % (Auto) Lymph % (Auto) Tama % (Auto) Eos % (Auto) Baso % (Auto) Lymph # (Auto) Tama # (Auto) Eos # (Auto) Baso # (Auto) Abs Immat Gran (auto) Absolute Neuts (auto) Absolute Nucleated RBC Nucleated RBC % Sodium Potassium Chloride Carbon Dioxide Anion Gap BUN Creatinine Estim Creat Clear Calc Estimated GFR Glucose POC Capillary Glucose 147 H 134 H 106 Calcium 12/01/19 12/01/19 12/01/19 07:57 07:57 11:29 WBC 6.9 RBC 4.78 Hgb 15.0 Hct 42.2 MCV 88.3 MCH 31.4 MCHC 35.5 RDW 14.6 H Plt Count 175 MPV 10.9 H Immature Gran % (Auto) 0.6 H Neut % (Auto) 71.4 Lymph % (Auto) 16.0 L Tama % (Auto) 9.5 H Eos % (Auto) 2.2 Baso % (Auto) 0.3 Lymph # (Auto) 1.11 Tama # (Auto) 0.7 H Eos # (Auto) 0.2 Baso # (Auto) 0.0 Abs Immat Gran (auto) 0.04 H Abso
[2019-12-01 16:41] LABS: Glucose Point of Care 107 (65-105)
[2019-12-01 22:22] LABS: Glucose Point of Care 113 (65-105)
[2019-12-02] MEDS: SODIUM CHLORIDE 0.9% IV 1,000 ML 100 ML IV CONT ×3 (02:31→23:05)
[2019-12-02 04:49] VITALS: BP 174/108; PULSE 53; RESP 18; TEMP 36.2; O2SAT 99
[2019-12-02] MEDS: amLODIPine BESYLATE 5 MG TABLET PO (09:16)
[2019-12-02] MEDS: cloNIDine HCL 0.1 MG TABLET PO ×3 (09:16→16:07)
[2019-12-02] MEDS: TOLNAFTATE 1% POWDER 45 GM BTL 1 APPLIC TOPICAL ×2 (09:18→21:25)
[2019-12-02 10:23] LABS: Glucose Point of Care 99 (65-105)
--- NOTE | 2019-12-02 11:33 | PM.IMPN ---
Progress Note: A&P Assessment and Plan (1) UTI (urinary tract infection): Code(s): N39.0 - Urinary tract infection, site not specified Status: Acute Assessment and Plan: Continue Rocephin Deescalate antibiotics Await ua I&S (2) Hypokalemia: Code(s): E87.6 - Hypokalemia Status: Acute Assessment and Plan: Replace as needed. (3) Hypertensive urgency: Code(s): I16.0 - Hypertensive urgency Status: Acute Assessment and Plan: Resolved Home meds have been resumed. (4) Altered mental status: Qualifiers: Altered mental status type: unspecified Qualified Code(s): R41.82 - Altered mental status, unspecified Code(s): R41.82 - Altered mental status, unspecified Status: Acute Assessment and Plan: Moderate cognitive impairment Disorientation CTA neck and head 2DECHO Carotid dopplers (5) HLD (hyperlipidemia): Qualifiers: Hyperlipidemia type: unspecified Qualified Code(s): E78.5 - Hyperlipidemia, unspecified Code(s): E78.5 - Hyperlipidemia, unspecified Status: Chronic Assessment and Plan: Heart healthy diet Low fat, low cholesterol. (6) DM II (diabetes mellitus, type II), controlled: Qualifiers: Diabetes mellitus complication status: without complication Diabetes mellitus terminal operator insulin use: without fdc use Qualified Code(s): E11.9 - Type 2 diabetes mellitus without complications Code(s): E11.9 - Type 2 diabetes mellitus without complications Status: Chronic Assessment and Plan: Continue to monitor Holding Metformin ISS as needed (7) Uncontrolled hypertension: Code(s): I10 - Essential (primary) hypertension Status: Acute Assessment and Plan: Re started on all home meds (8) Hypokalemia: Code(s): E87.6 - Hypokalemia Status: Acute Assessment and Plan: Replace as needed (9) Acute renal failure: Qualifiers: Acute renal failure type: unspecified Qualified Code(s): N17.9 - Acute kidney failure, unspecified Code(s): N17.9 - Acute kidney failure, unspecified Status: Acute Assessment and Plan: Improved BMP reviewed (10) Acute encephalopathy: Code(s): G93.40 - Encephalopathy, unspecified Status: Acute Assessment and Plan: Waxes and wanes. PT/OT/SP Subjective Date/time seen: 12/02/19 11:33 I'm fine. Review of Systems Review of Systems: Narrative: Unable to obtain due to AMS cognitive impairment. Exam Narrative: Exam Narrative: Lying in bed, well appearing. Const: General: cooperative, alert, awake, confusion and well groomed Nutritional Appearance: average body habitus Orientation/consciousness: oriented to person and oriented to place Limitations: altered mental status Other: Oriented to person and place but not to time or situation. HENMT: Head: normal to inspection and normocephalic Ears: hearing grossly normal bilaterally General nose exam: Normal external nose present Face and sinus: normal facial exam Mouth: Yes Normal oral and palatal mucosa present Eyes: General: appearance normal, both eyes and all related structures Pupils: Equal, round and reactive pupils present EOM: EOMs intact bilaterally Neck: Neck: normal visual inspection, no lymphadenopathy and no JVD Thyroid: thyroid normal Lymphatic: no lymphadenopathy noted Resp: Effort & Inspection: normal respiratory effort Auscultation: clear to auscultation bilaterally Cardio: Jugular venous distension: no JVD Rate: regular rate Rhythm: regular rhythm Heart sounds: S1 normal heart sound present and S2 normal heart sound present GI: Inspection: normal to inspection GI Palp: Yes Soft to palpation and Yes No hepatosplenomegaly present Auscultation: normal bowel sounds Skin: General skin exam: normal color and turgor normal Lesions: no lesions Rashes: no rashes Trauma: no lacerations or abr
[2019-12-02 11:43] LABS: Glucose Point of Care 106 (65-105)
[2019-12-02 14:00] VITALS: BP 179/106; PULSE 125; RESP 18; TEMP 35.9; O2SAT 100
--- NOTE | 2019-12-02 15:36 | PCSTNOTE ---
See full report for results of Communication Evaluation 12/02/19.
[2019-12-02 16:37] LABS: Glucose Point of Care 97 (65-105)
[2019-12-02 19:24] LABS: Basophils Percent Auto 0.4 % (0.2-1.2); Eosinophils Absolute Auto 0.2 K/mm3 (0-0.3); Eosinophils Percent Auto 2.9 % (0-4.4); Hematocrit 40.2 % (42.0-52.0); Hemoglobin 14.1 g/dL (14.0-18.0); Immature Granulocyte Absolute 0.04 K/mm3 (0.00-0.031); Immature Granulocyte Percent A 0.6 % (0-0.5); Lymphocytes Absolute Auto 1.05 K/mm3 (0.9-3.2); Lymphocytes Percent Auto 15.1 % (18.3-44.2); Mean Corpuscular HGB Conc 35.1 g/dl (32-36); Mean Corpuscular Hemoglobin 31.1 pg (26-34); Mean Corpuscular Volume 88.7 fl (80-100); Mean Platelet Volume 11.4 fl (7.4-10.4); Monocytes Absolute Auto 0.4 K/mm3 (0.1-0.6); Monocytes Percent Auto 5.9 % (2.6-8.5); Neutrophils Absolute Auto 5.2 K/mm3 (1.3-6.7); Neutrophils Percent Auto 75.1 % (45.5-73.1); Platelet Count Result 164 k/mm3 (150-375); Red Blood Count 4.53 M/mm3 (4.6-6.20); Red Cell Distribution Width 14.4 % (11.5-14.5)
[2019-12-02 19:34] LABS: Anion Gap 5 mmol/L (8-16); Blood Urea Nitrogen 18 mg/dL (9-20); Calcium 8.2 mg/dL (8.4-10.2); Carbon Dioxide 28 mmol/L (22-30); Chloride 105 mmol/L (98-107); Estimated CRCL calculation 66 ml/min; Estimated Glomerular Filt Rate 57; Glucose 145 mg/dL (75-110); Sodium 138 mmol/L (137-145)
[2019-12-02 20:08] VITALS: BP 153/97; PULSE 53; RESP 16; TEMP 36.3; O2SAT 100
[2019-12-02 21:55] LABS: Glucose Point of Care 126 (65-105)
--- NOTE | 2019-12-02 23:31 | PC.NURSE ---
Patient off floor for his CTA of the brain.
--- NOTE | 2019-12-02 23:56 | PC.NURSE ---
Patient returned back to floor from CTA.
[2019-12-03 07:41] LABS: Glucose Point of Care 83 (65-105)
--- NOTE | 2019-12-03 07:53 | PM.IMPN ---
Progress Note: A&P Assessment and Plan (1) UTI (urinary tract infection): Code(s): N39.0 - Urinary tract infection, site not specified Status: Acute Assessment and Plan: Ruled out Negative ua cx Will discontinue Rocephin (2) Hypokalemia: Code(s): E87.6 - Hypokalemia Status: Acute Assessment and Plan: Replace as needed Daily BMP (3) Hypertensive urgency: Code(s): I16.0 - Hypertensive urgency Status: Acute Assessment and Plan: Resolved Continue home meds Continue to monitor (4) Altered mental status: Qualifiers: Altered mental status type: unspecified Qualified Code(s): R41.82 - Altered mental status, unspecified Code(s): R41.82 - Altered mental status, unspecified Status: Acute Assessment and Plan: Unchanged Confused Disoriented Waxes and wanes Speech altered as well (5) Homelessness: Code(s): Z59.0 - Homelessness Status: Chronic Assessment and Plan: tutor coordinator on board Awaiting placement. (6) Intertrigo: Code(s): L30.4 - Erythema intertrigo Status: Acute Assessment and Plan: Continue antifungal. (7) DM II (diabetes mellitus, type II), controlled: Qualifiers: Diabetes mellitus usp insulin use: without terminal clerk use Diabetes mellitus complication status: without complication Qualified Code(s): E11.9 - Type 2 diabetes mellitus without complications Code(s): E11.9 - Type 2 diabetes mellitus without complications Status: Chronic Assessment and Plan: ISS as needed. (8) Acute renal failure: Qualifiers: Acute renal failure type: unspecified Qualified Code(s): N17.9 - Acute kidney failure, unspecified Code(s): N17.9 - Acute kidney failure, unspecified Status: Acute Assessment and Plan: Bun/Cr have plateau Continue to monitor Daily BMP Avoid nephrotoxins (9) Acute encephalopathy: Code(s): G93.40 - Encephalopathy, unspecified Status: Acute Assessment and Plan: Sepsis ruled out Persistent Stroke ruled out 2DECHO noted Work up thus far has been low yield Suspect Dementia. MRI unable to obtain due to unknown history. Subjective Date/time seen: 12/03/19 07:53 Review of Systems Review of Systems: Narrative: Unable to obtain due to patient's cognitive impairment. Exam Narrative: Exam Narrative: Lying in bed. Const: General: cooperative, comfortable, no acute distress, alert, awake, Physically active, confusion and well groomed Nutritional Appearance: average body habitus and well nourished Orientation/consciousness: confusion Limitations: altered mental status Other: Cognitive impairment. HENMT: Head: normocephalic Ears: hearing grossly normal bilaterally General nose exam: Normal external nose present Eyes: General: appearance normal, both eyes and all related structures Pupils: Equal, round and reactive pupils present EOM: EOMs intact bilaterally Neck: Neck: full ROM, no lymphadenopathy and no JVD Thyroid: thyroid normal Lymphatic: no lymphadenopathy noted Resp: Effort & Inspection: normal respiratory effort Auscultation: clear to auscultation bilaterally Cardio: Jugular venous distension: no JVD Rate: regular rate Rhythm: regular rhythm Heart sounds: S1 normal heart sound present and S2 normal heart sound present GI: Inspection: normal to inspection GI Palp: Yes Soft to palpation and Yes No hepatosplenomegaly present Auscultation: normal bowel sounds Skin: General skin exam: normal color Lesions: no lesions Rashes: no rashes Trauma: no lacerations or abrasions Wounds: no wounds Hair: normal Nails: yellow and thickened Neuro: General: oriented to person, CN's II-XI intact bilaterally and confusion Cranial nerves: Yes Equal, round and reactive pupils present and Yes Bilaterally intact EOM present Cognition (Neuro): abnormal cognition Gait exam (Neuro): No
[2019-12-03] MEDS: amLODIPine BESYLATE 5 MG TABLET PO (08:55)
[2019-12-03] MEDS: cloNIDine HCL 0.1 MG TABLET PO ×3 (08:55→17:01)
[2019-12-03] MEDS: lisinopriL 20 MG TABLET 40 MG PO (08:56)
[2019-12-03] MEDS: TOLNAFTATE 1% POWDER 45 GM BTL 1 APPLIC TOPICAL ×2 (08:56→21:43)
[2019-12-03] MEDS: hydroCHLOROthiazide 12.5 MG CAPSULE PO (08:56)
[2019-12-03] MEDS: SODIUM CHLORIDE 0.9% IV 1,000 ML 100 ML IV CONT (09:41)
--- NOTE | 2019-12-03 11:20 | PCNFU ---
Nutrition Follow-Up Complete: Involuntary weight loss related to decreased appetite/intake as evidenced by reported 12 pound weight loss x 1 week prior to admission. Goal: Patient to consume 75% of meals or greater. Patient has met goal. No new goal. Pt current nutrition is DBCC. Nutrition recommendation: Agree Last recorded weight is 109.6 kg. Bowel Motility:+BM reported 11/29 Labs Reviewed: GFR 57,Glu 145 Meds Noted:Novolog,NS at 100 ml/hr, Recephin Additional Notes: Nutrition follow up. Patient is consuming 100% of meals. Glucerna shakes TID are providing an additional 220 kcals and 10 gms protein. Diet order remains appropriate. Monitoring: Follow up in 7 days.
[2019-12-03 11:28] LABS: Glucose Point of Care 91 (65-105)
[2019-12-03 12:20] VITALS: BP 184/104
[2019-12-03 12:25] VITALS: BP 204/119
[2019-12-03 14:30] VITALS: BP 156/86
--- NOTE | 2019-12-03 16:28 | PCSTNOTE ---
The patient treatment was not able to be completed on 12/03/19 due to scheduling issues. Will plan to continue treatment per plan of care.
[2019-12-03 17:06] LABS: Glucose Point of Care 131 (65-105)
[2019-12-03 17:37] LABS: Basophils Percent Auto 0.5 % (0.2-1.2); Eosinophils Absolute Auto 0.2 K/mm3 (0-0.3); Eosinophils Percent Auto 2.4 % (0-4.4); Hematocrit 44.2 % (42.0-52.0); Hemoglobin 15.6 g/dL (14.0-18.0); Immature Granulocyte Absolute 0.03 K/mm3 (0.00-0.031); Immature Granulocyte Percent A 0.4 % (0-0.5); Lymphocytes Absolute Auto 0.85 K/mm3 (0.9-3.2); Lymphocytes Percent Auto 11.1 % (18.3-44.2); Mean Corpuscular HGB Conc 35.3 g/dl (32-36); Mean Corpuscular Hemoglobin 31.9 pg (26-34); Mean Corpuscular Volume 90.4 fl (80-100); Mean Platelet Volume 11.6 fl (7.4-10.4); Monocytes Absolute Auto 0.4 K/mm3 (0.1-0.6); Monocytes Percent Auto 5.2 % (2.6-8.5); Neutrophils Absolute Auto 6.1 K/mm3 (1.3-6.7); Neutrophils Percent Auto 80.4 % (45.5-73.1); Platelet Count Result 208 k/mm3 (150-375); Red Blood Count 4.89 M/mm3 (4.6-6.20); Red Cell Distribution Width 14.7 % (11.5-14.5); White Blood Count 7.6 K/mm3 (4.5-10.0)
[2019-12-03 19:29] LABS: Potassium 3.7 mmol/L (3.4-5.0)
[2019-12-03 19:33] LABS: Anion Gap 5 mmol/L (8-16); Blood Urea Nitrogen 17 mg/dL (9-20); Calcium 8.6 mg/dL (8.4-10.2); Carbon Dioxide 27 mmol/L (22-30); Chloride 107 mmol/L (98-107); Estimated CRCL calculation 62 ml/min; Estimated Glomerular Filt Rate 53; Glucose 96 mg/dL (75-110); Sodium 139 mmol/L (137-145)
[2019-12-03 21:53] VITALS: BP 140/80; PULSE 52; RESP 16; TEMP 36.1; O2SAT 100
[2019-12-03 21:59] LABS: Glucose Point of Care 120 (65-105)
[2019-12-04] VITALS (9 sets, daily range): BP systolic 145–188; BP diastolic 82–116; PULSE 49–62; RESP 12–18; TEMP 36.2–36.4; O2SAT 98–99
--- NOTE | 2019-12-04 07:44 | PM.IMPN ---
Progress Note: A&P Assessment and Plan (1) UTI (urinary tract infection): Code(s): N39.0 - Urinary tract infection, site not specified Status: Acute Assessment and Plan: Ruled out ua cx no significant growth. (2) Hypokalemia: Code(s): E87.6 - Hypokalemia Status: Acute Assessment and Plan: Replace as needed. (3) Hypertensive urgency: Code(s): I16.0 - Hypertensive urgency Status: Acute Assessment and Plan: Resolved On Lisinopril/HZTC/Clonidine Continue to monitor (4) Altered mental status: Qualifiers: Altered mental status type: unspecified Qualified Code(s): R41.82 - Altered mental status, unspecified Code(s): R41.82 - Altered mental status, unspecified Status: Acute Assessment and Plan: Unchanged Ammonia is WNL Stroke work up essentially non revealing however white matter chronic changes Suspect Dementia. (5) DM II (diabetes mellitus, type II), controlled: Qualifiers: Diabetes mellitus regional intermodal truck driver insulin use: without intermediate use Diabetes mellitus complication status: without complication Qualified Code(s): E11.9 - Type 2 diabetes mellitus without complications Code(s): E11.9 - Type 2 diabetes mellitus without complications Status: Chronic Assessment and Plan: Diet and lifestyle modifications. (6) Uncontrolled hypertension: Code(s): I10 - Essential (primary) hypertension Status: Acute Assessment and Plan: Better controlled. (7) Acute renal failure: Qualifiers: Acute renal failure type: unspecified Qualified Code(s): N17.9 - Acute kidney failure, unspecified Code(s): N17.9 - Acute kidney failure, unspecified Status: Acute Assessment and Plan: Bun/Cr have reached plateau Daily BMP (8) Acute encephalopathy: Code(s): G93.40 - Encephalopathy, unspecified Status: Acute Assessment and Plan: Waxes and wanes. Subjective Date/time seen: 12/04/19 07:44 I feel fine. Review of Systems Review of Systems: Narrative: Unable to obtain due to patient's AMS Exam Narrative: Exam Narrative: Lying in bd. Const: General: cooperative, healthy appearing, comfortable, no acute distress, alert, awake, Physically active, confusion and well groomed Nutritional Appearance: average body habitus and well nourished HENMT: Head: normal to inspection Ears: hearing grossly normal bilaterally General nose exam: Normal external nose present Face and sinus: normal facial exam Mouth: Yes Normal oral and palatal mucosa present Eyes: General: appearance normal, both eyes and all related structures Pupils: Equal, round and reactive pupils present EOM: EOMs intact bilaterally Neck: Neck: normal visual inspection, no lymphadenopathy and no JVD Resp: Auscultation: clear to auscultation bilaterally Cardio: Jugular venous distension: no JVD Rate: regular rate Rhythm: regular rhythm Heart sounds: S1 normal heart sound present and S2 normal heart sound present GI: Inspection: normal to inspection GI Palp: Yes Soft to palpation and Yes No hepatosplenomegaly present Skin: General skin exam: normal color Lesions: no lesions Rashes: no rashes Trauma: no lacerations or abrasions Wounds: no wounds Hair: normal Nails: yellow and thickened and other (Toe nails.) Neuro: General: CN's II-XI intact bilaterally Cranial nerves: Yes Equal, round and reactive pupils present and Yes Bilaterally intact EOM present Cognition (Neuro): abnormal cognition Gait exam (Neuro): Normal gait present Motor exam (neuro): 5/5 motor strength present throughout Extrem: General: normal to inspection and no pedal edema Right upper extremity: full ROM Objective Data Vital Signs Vital Signs: Vital Signs - 24 hr 12/03/19 12:20 12/03/19 12:25 12/03/19 14:30 Temperature Pulse Rate Respiratory Rate Blood Pressure 184/104 H 204/119 H 156/86 H Pulse Oxime
[2019-12-04] MEDS: cloNIDine HCL 0.1 MG TABLET PO ×4 (08:48→18:06)
[2019-12-04] MEDS: amLODIPine BESYLATE 5 MG TABLET PO (08:48)
[2019-12-04] MEDS: hydroCHLOROthiazide 12.5 MG CAPSULE PO (08:48)
[2019-12-04] MEDS: lisinopriL 20 MG TABLET 40 MG PO (08:48)
[2019-12-04] MEDS: TOLNAFTATE 1% POWDER 45 GM BTL 1 APPLIC TOPICAL ×2 (08:49→21:05)
[2019-12-04 09:58] LABS: Glucose Point of Care 90 (65-105)
[2019-12-04 11:41] LABS: Glucose Point of Care 106 (65-105)
[2019-12-04 16:28] LABS: Glucose Point of Care 105 (65-105)
[2019-12-04 17:09] LABS: Basophils Percent Auto 0.5 % (0.2-1.2); Eosinophils Absolute Auto 0.2 K/mm3 (0-0.3); Eosinophils Percent Auto 2.2 % (0-4.4); Hematocrit 43.8 % (42.0-52.0); Hemoglobin 15.3 g/dL (14.0-18.0); Immature Granulocyte Absolute 0.03 K/mm3 (0.00-0.031); Immature Granulocyte Percent A 0.4 % (0-0.5); Lymphocytes Absolute Auto 0.92 K/mm3 (0.9-3.2); Mean Corpuscular HGB Conc 34.9 g/dl (32-36); Mean Corpuscular Hemoglobin 31.4 pg (26-34); Mean Corpuscular Volume 89.8 fl (80-100); Monocytes Absolute Auto 0.5 K/mm3 (0.1-0.6); Monocytes Percent Auto 5.7 % (2.6-8.5); Neutrophils Absolute Auto 6.7 K/mm3 (1.3-6.7); Neutrophils Percent Auto 80.2 % (45.5-73.1); Platelet Count Result 203 k/mm3 (150-375); Red Blood Count 4.88 M/mm3 (4.6-6.20); Red Cell Distribution Width 14.2 % (11.5-14.5); White Blood Count 8.4 K/mm3 (4.5-10.0)
[2019-12-04 17:20] LABS: Anion Gap 5 mmol/L (8-16); Blood Urea Nitrogen 16 mg/dL (9-20); Calcium 8.6 mg/dL (8.4-10.2); Carbon Dioxide 26 mmol/L (22-30); Chloride 107 mmol/L (98-107); Estimated CRCL calculation 67 ml/min; Estimated Glomerular Filt Rate 57; Glucose 100 mg/dL (75-110); Potassium 3.8 mmol/L (3.4-5.0); Sodium 138 mmol/L (137-145)
[2019-12-04 21:08] LABS: Glucose Point of Care 151 (65-105)
[2019-12-05 06:53] VITALS: BP 164/130; PULSE 61; RESP 16; TEMP 36.6; O2SAT 98
[2019-12-05 08:00] VITALS: PULSE 61; RESP 16; O2SAT 98
[2019-12-05 08:06] LABS: Glucose Point of Care 89 (65-105)
[2019-12-05] MEDS: cloNIDine HCL 0.1 MG TABLET PO ×2 (08:17→13:04)
[2019-12-05] MEDS: lisinopriL 20 MG TABLET 40 MG PO (08:18)
[2019-12-05] MEDS: hydroCHLOROthiazide 12.5 MG CAPSULE PO (08:18)
[2019-12-05] MEDS: amLODIPine BESYLATE 5 MG TABLET PO (08:18)
[2019-12-05] MEDS: TOLNAFTATE 1% POWDER 45 GM BTL 1 APPLIC TOPICAL (09:18)
[2019-12-05 10:09] VITALS: BP 152/95; PULSE 61
--- NOTE | 2019-12-05 10:53 | PM.DS ---
DS: Admitting Diagnosis Admitting Diagnosis Admitting Diagnosis: hypokalemia, hypertensive urgency DS: Discharge Diagnosis Discharge Diagnosis (1) Acute encephalopathy: Code(s): G93.40 - Encephalopathy, unspecified Status: Acute (2) Altered mental status: Qualifiers: Altered mental status type: unspecified Qualified Code(s): R41.82 - Altered mental status, unspecified Code(s): R41.82 - Altered mental status, unspecified Status: Acute (3) UTI (urinary tract infection): Code(s): N39.0 - Urinary tract infection, site not specified Status: Acute (4) Hypokalemia: Code(s): E87.6 - Hypokalemia Status: Acute (5) Hypertensive urgency: Code(s): I16.0 - Hypertensive urgency Status: Acute (6) DM II (diabetes mellitus, type II), controlled: Qualifiers: Diabetes mellitus complication status: without complication Diabetes mellitus director long term care insulin use: without director long term care use Qualified Code(s): E11.9 - Type 2 diabetes mellitus without complications Code(s): E11.9 - Type 2 diabetes mellitus without complications Status: Chronic (7) Uncontrolled hypertension: Code(s): I10 - Essential (primary) hypertension Status: Acute (8) Acute renal failure: Qualifiers: Acute renal failure type: unspecified Qualified Code(s): N17.9 - Acute kidney failure, unspecified Code(s): N17.9 - Acute kidney failure, unspecified Status: Acute DS: Summary Hospital Course Reason for hospitalization: 54-year-old man with a history of diabetes, hypertension who is noncompliant with medications with a history of homelessness who is currently living in an apartment at discharge, who presented to the emergency department for confusion. The patient's friend was concerned about the patient's confusion and that he had not eaten in 3 days and brought him to the emergency room for further evaluation. Emergency room vitals show temperature 36.7? C, heart rate 87, respiratory rate 20, blood pressure 221/138, pulse ox 97% on room air. Initial labs showed normal CBC with elevated neutrophils on differential, hypokalemia at 2.5, TSERING with creatinine 1.7, BUN 18, serum bicarb was elevated at 37, serum glucose was elevated at 182. Total CK was 220. Urinalysis showed 3+ blood, trace leukocyte esterase, wbc's 21-30 and he was started on IV antibiotics for possible infection. CT head showed No acute intracranial findings, chronic age-related findings in multiple old bilateral lacunar infarcts. Chest x-ray showed cardiomegaly, pulmonary vascular congestion. The patient was admitted into the hospital for further evaluation for possible stroke due to confusion, uncontrolled blood pressure. Patient was unable to get an MRI, but we repeated a CTA head and neck 4 days later which was negative for any acute abnormality your stroke findings. Neurology was consulted and recommended continue taking baby aspirin. The patient was not taking any of his medications because he never got them refilled. We placed him back on all of his blood pressure medications, cholesterol medication and start him on a baby aspirin daily. I did not prescribe his diabetes medications due to him having normal glucoses while here when on a diabetic diet and when he came in he had not eaten for a few days, so I would not want to cause hypoglycemic. Instructed him to take his blood pressure and glucose daily. Follow-up with his primary care provider within 1 week of discharge. And make sure he gets his medications refilled next time. Status at Discharge Cognitive/behavioral status at discharge: Stable, improved. Time Spent with Patient Time attestation: Total time spent providing and/or coordinating discharge services: Time spent: Greater than 30 minutes Exam Narrative: Exam Narrative: General: 54-year-old man who is laying flat in bed re
[2019-12-05 11:52] LABS: Glucose Point of Care 107 (65-105)
--- NOTE | 2019-12-05 15:03 | PC.NURSE ---
[age] refuses flu vaccine.
--- NOTE | 2019-12-09 08:47 | PC.NURSE ---
Blood cx are negative.
== END 2019-12-05 14:15 | disposition home or self-care (01) | DRG 199 ==
LOC: ANHED 20:50 → ANHIMU 21:06 → ANH3MED 12-01 07:48 → ANHIMU 12-08 12:52
PROVIDERS: Emergency Medicine; Internal Medicine; Admitting Provider Family Medicine; Emergency Provider Emergency Medicine; PCP Family Medicine; Visit Provider Physician Assistant
DX: I16.0 Hypertensive urgency (principal); E87.6 Hypokalemia; E11.9 Type 2 diabetes mellitus without complications; F03.90 Unspecified dementia, unspecified severity, without behavioral disturbance, psychotic disturbance, mood disturbance, and anxiety; G93.40 Encephalopathy, unspecified; L30.4 Erythema intertrigo; E78.5 Hyperlipidemia, unspecified; Z59.0 Homelessness; Z86.73 Personal history of transient ischemic attack (TIA), and cerebral infarction without residual deficits; Z91.14 Patient's other noncompliance with medication regimen
CPT/HCPCS: 36415; 36600; 51701; 70450; 70496; 70498; 71045; 80048; 80053; 80307; 81001; 82140; 82550; 82607; 82746; 82805; 83735; 84132; 84439; 85025; 87040; 87086; 87088; 92507; 93005; 93880; 96361; 96365; 96366; 96375; 97110; 97116; 97161; 97165; 97530; 97535; 99285; A9270; C8929; G0378; G0379; J0360; J0696; J3480; J7030; Q9957; Q9967